=== PATIENT | male | born 1985 ===

== ENCOUNTER → 2018-10-19 21:19 | Outpatient (REF) | payer OTHER, SELFPAY ==
[2018-10-19 21:48] LABS: Add Manual Diff / Slide Review NO; Basophils Percent Auto 0.5 % (0-2); Eosinophils Percent Auto 3.4 % (2-4); Hematocrit 49.1 % (41-53); Hemoglobin 16.9 g/dL (13.5-17.5); Lymphocytes Percent Auto 25.4 % (25-40); Mean Corpuscular HGB Conc 34.3 % (30-36); Mean Corpuscular Hemoglobin 31.1 PG (26-34); Mean Corpuscular Volume 90.6 fL (80-100); Monocytes Percent Auto 10.5 % (3-14); Neutrophils Absolute Auto 4400 /uL (3000-5900); Neutrophils Percent Auto 60.2 % (50-75); Platelet Count 224 X10^3/uL (150-400); Red Blood Cell Count 5.42 X10^6/uL (4.5-5.9); Red Cell Distribution Width 14.2 % (11.6-14.8); White Blood Cell Count 7.4 X10^3/uL (4.5-11.0)
[2018-10-21 18:01] LABS: Sex Hormone Binding Globulin 22 nmol/L (10-50)
[2018-10-22 14:02] LABS: PSA Total 0.97 ng/mL (< 4.01)
[2018-10-22 16:01] LABS: Estradiol 37 pg/mL (< 40)
[2018-10-23 17:33] LABS: Testosterone Free 282.3 pg/mL (35.0-155.0); Testosterone Total 969 ng/dL (250-1100)
== END ==
LOC: LAB 21:19
PROVIDERS: Visit Provider Naturopath
DX: E29.1 Testicular hypofunction (principal); R53.83 Other fatigue; R06.83 Snoring
CPT/HCPCS: 82670; 84153; 84154; 84270; 84402; 84403; 85025

== ENCOUNTER → 2019-01-30 00:20 | Outpatient (REF) | payer OTHER, SELFPAY ==
[2019-01-30 03:07] LABS: Add Manual Diff / Slide Review NO; Basophils Absolute Auto 100 /uL (0-100); Basophils Percent Auto 0.9 % (0-2); Eosinophils Absolute Auto 200 /uL (0-450); Eosinophils Percent Auto 3.4 % (2-4); Hematocrit 48.2 % (41-53); Hemoglobin 16.4 g/dL (13.5-17.5); Lymphocytes Absolute Auto 1500 /uL (1100-4500); Lymphocytes Percent Auto 23.7 % (25-40); Mean Corpuscular Hemoglobin 30.6 PG (26-34); Mean Corpuscular Volume 89.9 fL (80-100); Monocytes Absolute Auto 900 /uL (0-900); Monocytes Percent Auto 13.8 % (3-14); Neutrophils Absolute Auto 3700 /uL (1500-7000); Neutrophils Percent Auto 58.2 % (50-75); Platelet Count 225 X10^3/uL (150-400); Red Blood Cell Count 5.36 X10^6/uL (4.5-5.9); Red Cell Distribution Width 13.5 % (11.6-14.8); White Blood Cell Count 6.4 X10^3/uL (4.5-11.0)
[2019-02-02 13:55] LABS: PSA Total 1.36 ng/mL (< 4.01)
[2019-02-02 17:38] LABS: Estradiol 31 pg/mL (< 40)
== END ==
LOC: LAB 00:20
PROVIDERS: Visit Provider Naturopath
DX: E29.1 Testicular hypofunction (principal); R53.83 Other fatigue; Z83.3 Family history of diabetes mellitus
CPT/HCPCS: 36415; 82670; 83036; 84153; 84154; 84270; 84402; 84403; 85025